=== PATIENT | female | born 1950 ===

== ENCOUNTER 2019-10-13 14:27 | Day surgery (SDC) | payer OTHER, SELFPAY ==
[2019-10-10 09:30] VITALS: BMI 29.2
[2019-10-13] VITALS (8 sets, daily range): BP systolic 138–178; BP diastolic 66–104; PULSE 70–98; RESP 12–18; TEMP 36.5–37.1; O2SAT 94–96; BMI 29.2
--- NOTE | 2019-10-13 | PATH_ITS ---
[facility] Accession Number: [id number] . 01 Material submitted: . bone - VERTEBRAL BONE BIOPSY . 01 Clinical history: . KYPHOPLASTY . 01 Diagnosis: Bone, Vertebral Body, Biopsy: Scant trabecular bone with new bone formation and cartilage with extensive degenerative changes. [facility] 10/16/2019 1619 Local . 01 Comment: The biopsy also includes completely crushed cellular elements, which cannot be evaluated morphologically. . 01 Electronically signed: . Daysi Castañeda MD, Pathologist NPI- [id number] . 01 Gross description: . Received in formalin, labeled L1 bone biopsy, are multiple fragments of red-brown tissue (0.2 x 0.2 x 0.1 cm in aggregate). Decalcified and entirely submitted in cassette A1. ([id number]) /MRV 10/14/2019 2151 Local . 01 Pathologist provided ICD-10: M43.16 . 01 CPT . 116141, [id number] [facility]: [facility] [address] [place] [address], [place], [place] [id number] MD Kirby Hernandez MD Phone: [phone]
--- NOTE | 2019-10-13 | DI.RAD.S_ITS ---
PROCEDURE: XR LUMBAR SPINE 2-3V INDICATIONS: L1 fracture TECHNIQUE: Multiple intraoperative spot of the lumbar spine were acquired. COMPARISON: [facility] Outside Film, MR, MR LUMBAR SPINE WITHOUT CONTRAST, 08/15/2019, 10:45. FINDINGS: Intraoperative spot images are submitted and demonstrate bony cement injection at L1. There is cement extending into the T12-L1 and L1-L2 intervertebral disc spaces. IMPRESSION: Bony cement injection at L1 and the adjacent disc spaces as described above. Dictated by: Tara Childress M.D. on 10/13/2019 at 17:04 Approved by: Tara Childress M.D. on 10/13/2019 at 17:06
--- NOTE | 2019-10-13 15:18 | PM.HP.1 ---
History of Present Illness History of Present Illness Chief complaint: 57196 L1 KYPHOPLASTY Patient History Medical History Chronic back pain (Acute) Compression fracture of L1 vertebra (Acute) Cortical age-related cataract of both eyes (Acute) Depression (Acute) HTN (hypertension) (Acute) Hyponatremia (Acute) Osteoporosis (Acute) Surgical History No history of previous surgery (Acute) Family & Social History Tobacco & Substance use: alcohol intake current Meds Home Medications and Allergies Home Medications Medication Instructions Recorded Confirmed Type alendronate 70 mg PO QWEEK 10/10/19 10/13/19 History hydrocodone-acetaminophen 0.5 - 1 tab PO Q4-6H PRN 10/10/19 10/13/19 History losartan 100 mg PO DAILY 10/10/19 10/13/19 History metoprolol succinate 100 mg PO DAILY 10/10/19 10/13/19 History omeprazole 20 mg PO DAILY 10/10/19 10/13/19 History venlafaxine 150 mg PO DAILY 10/10/19 10/13/19 History Allergies Allergy/AdvReac Type Severity Reaction Status Date / Time No Known Drug Allergies Allergy Verified 10/10/19 10:35 Review of Systems Cardiovascular Cardiovascular: Denies chest pain Respiratory Respiratory: Denies cough Exam Resp Auscultation: clear to auscultation bilaterally Cardio Rate: regular rate Rhythm: regular rhythm Back/Spine/Pelvis Other: Tender at the thoracolumbar junction in the bilateral lower lumbar paraspinals. 5/5 motor 2+ reflexes, negative straight leg raising both lower extremities Objective Imaging Lumbar MRI : My impression: From 08/15/2019 shows an acute L1 compression fracture with edema throughout the entire bone. Approximately 50% height loss. Assessment & Plan Assessment & Plan narrative: Acute L1 compression fracture with back pain. Plan for L1 kyphoplasty today. Risks and benefits again were discussed and appropriate consent obtained.
--- NOTE | 2019-10-13 15:29 | PM.PREOP ---
Pre-operative Note Interval Note History & Physical reviewed/Exam performed by Physician: Yes Changes to H&P: No
--- NOTE | 2019-10-13 15:29 | PM.OP.1 ---
Operative Date/Time/Diagnoses Date of procedure: 10/13/19 Time of procedure: 16:32 Pre-op diagnosis: L1 compression fracture Back pain Post-op diagnosis: same Procedure & Clinicians Procedure: L1 kyphoplasty Same procedure as scheduled: Yes Indications: [age] year old female with intractable pain from an acute L1 compression fracture. They had failed conservative management and requested operative intervention. Risks and benefits of surgery were discussed and appropriate consents were obtained. Surgeon: Freddie Ch Click Yes if Unassisted: Yes Anesthesia Type: General Operative Notes Findings: None Closure Type: primary Specimen(s): other (L1 vertebral biopsy) Estimated Blood Loss (mL): 2 Procedure in detail: The patient was brought to the operating room and intubated on the table. They were then rolled over to the well-padded prone position. Time-out was performed. We confirmed positioning with two fluoroscopy views. The back was prepped and draped in the standard sterile fashion. Preoperative antibiotics were given. Using fluoroscopic guidance, the planned incision site was infiltrated with Marcaine with epinephrine and injected down to the entry site of the left pedicle of L1. A small stab incision was made and we advanced a Jamshiedi needle down the left pedicle into the vertebral body. A bone biopsy was harvested from this and sent to pathology. We then passed the DFine osteotome and opened it up to create a void inside the vertebral body. This was very soft bone and the osteotome moved easily up and down. We then began injecting the cement. This was done with frequent fluoroscopy imaging. There was extravasation into the inferior disc space. We stopped and checked in for 3 minutes to let the solidify. We injected a little bit more but still some was leaking out and we stopped again to let solidify. We then began injecting and there was no more extravasation but it began filling the vertebral body with cement. Once we had good fill of the L1 vertebral body the injection was stopped and the trocars were removed. Final x-rays were taken. The wound was cleaned. Steri-Strips and sterile dressing were placed. Patient was rolled over, extubated, and brought to recovery without complications. Complications: none Post-operative Condition: stable Disposition: PACU Plan for aftercare: Outpatient. Activity as tolerated.
[2019-10-13] MEDS: LACTATED RINGERS 1,000 ML 42 ML IV (15:37)
[2019-10-13] MEDS: CEFAZOLIN 2 GM/100 ML FROZ.PIGGY IV (15:50)
--- NOTE | 2019-10-13 16:06 | SUR.OPER ---
Prone on spine table, head in foam head support, padded chest and pelvic supports, gel pad at knees, lower legs supported by pillows; nipples, genitalia and toes free of pressure, arms secured on foam padded arm boards at <90 degrees abduction. Tape over blanket at thigh secured to table.
[2019-10-13] MEDS: HYDROCODONE/ACET 5/325 TABLET 1 TAB PO (17:15)
--- NOTE | 2019-10-13 17:39 | SUR.PHASEII ---
pt expressed desire and readiness to go home, d/c instructions reviewed with pt and family with verbalized understanding, pt states her lower back pain is 0/10, dressing is clean and dry, pt up to BR to void, ambulating without difficulty. pt home with and daughter.
== END 2019-10-13 17:42 | disposition home or self-care (01) ==
PROVIDERS: Family Provider Family Medicine; PCP Family Medicine; Visit Provider Orthopaedic Surgery
PROC: (CPT 22514; principal; 2019-10-13 16:15)
DX: S32.010G Wedge compression fracture of first lumbar vertebra, subsequent encounter for fracture with delayed healing (principal); M54.9 Dorsalgia, unspecified; M43.16 Spondylolisthesis, lumbar region; W01.0XXA Fall on same level from slipping, tripping and stumbling without subsequent striking against object, initial encounter; I10 Essential (primary) hypertension
CPT/HCPCS: 22514; 72100; 76000; C1776; J0330; J0690; J2405; J2704; J3010